=== PATIENT | male | born 1970 | race Caucasian/White ===

== ENCOUNTER 2016-09-22 09:13 | Emergency (ER) | payer BC ==
[2016-09-22] MEDS ORDERED: NITROGLYCERIN OINT 1 INCH/GM PACKET TOPICAL STA (09:40)
[2016-09-22] MEDS ORDERED: ASPIRIN 81 MG CHEW PO STA (09:40)
--- NOTE | 2016-09-22 09:44 | ED ---
General Adult HPI - General Chief complaint: Chest Pain Stated complaint: chest pain Time Seen by Provider: 09/22/16 09:20 Source: patient, RN notes reviewed Mode of arrival: wheelchair Limitations: no limitations - History of Present Illness Initial comments: This is a 45-year-old male who has a past medical history significant for 30 years of 3 pack a day smoking. Patient comes in today because since yesterday he's been getting significant chest pain across his chest and into his arms he states he also short of breath when it occurs. Patient states only last for 2- 3 seconds and goes away. patient states it's been intermittent since yesterday and continues to occur today. Patient states it never lasts more than a few seconds. But when it does come patient states is pretty significant pain Patient denies any diabetes hypertension and high cholesterol. Patient does not recognize anything that makes pain worse or better. Patient denies any recent fever or chills. Patient states she's always got a chronic cough probably secondary to smoke. Patient denies any headache patient denies numbness weakness. Patient denies any lightheadedness dizziness or near syncopal episode. Patient denies any abdominal pain patient denies nausea vomiting diarrhea. - Related Data Previous Rx's Medication Instructions Recorded Ibuprofen [Motrin] 600 mg PO Q6HR PRN #20 tab 09/22/16 Allergies Allergy/AdvReac Type Severity Reaction Status Date / Time No Known Allergies Allergy Verified 09/22/16 10:39 Review of Systems ROS Statement: Those systems with pertinent positive or pertinent negative responses have been documented in the HPI. ROS Other: All systems not noted in ROS Statement are negative. Past Medical History Past Medical History: No Reported History History of Any Multi-Drug Resistant Organisms: None Reported Past Surgical History: Tonsillectomy Past Psychological History: No Psychological Hx Reported Smoking Status: Current every day smoker Past Alcohol Use History: Occasional Past Drug Use History: Marijuana General Exam - General Exam Comments Initial Comments: GENERAL: Patient is well-developed and well-nourished. Patient is nontoxic and well- hydrated and is in no distress. ENT: Neck is soft and supple. No significant lymphadenopathy is noted. Oropharynx is clear. Moist mucous membranes. Neck has full range of motion without eliciting any pain EYES: The sclera were anicteric and conjunctiva were pink and moist. Extraocular movements were intact and pupils were equal round and reactive to light. Eyelids were unremarkable. PULMONARY: Unlabored respirations. Good breath sounds bilaterally. No audible rales rhonchi or wheezing was noted. CARDIOVASCULAR: There is a regular rate and rhythm without any murmurs gallops or rubs. ABDOMEN: Soft and nontender with normal bowel sounds. No palpable organomegaly was noted. There is no palpable pulsatile mass. SKIN: Skin is clear with no lesions or rashes and otherwise unremarkable. NEUROLOGIC: Patient is alert and oriented x3. Cranial nerves II through XII are grossly intact. Motor and sensory are also intact. Normal speech, volume and content. Symmetrical smile. MUSCULOSKELETAL: Normal extremities with adequate strength and full range of motion. No lower extremity swelling or edema. No calf tenderness. LYMPHATICS: No significant lymphadenopathy is noted PSYCHIATRIC: Normal psychiatric evaluation. Limitations: no limitations Course Vital Signs 09/22/16 09:17 Temperature 98.0 F Pulse Rate 110 H Respiratory 20 Rate Blood Pressure 129/96 O2 Sat by Pulse 98 Oximetry Medical Decision Making - Medical Decision Making Patient's EKG shows a normal sinus rhythm at 80 bpm CA interval 224 QRS is 80 QT interval 360 QTC is 4:15 patient's EKG shows no ST segment elevation or depression or T-wave abdomen is noted. Patient had 2 episodes of chest pain lasting 3-4 seconds in the emergency department and then it quickly subsided. Chest x-ray showed no acute abnormality. I spoke with the patient at length about quitting smoking it lasted at least 5 minutes. I discussed the patient's results with him and his and told him I recommended him stay in the hospital and repeating his heart enzymes he stated he did not want to stay and wanted to follow-up with Dr. amaral. I will be discharging the patient with the understanding that he is to follow-up soon as he can and to return if there are any new or worsening symptoms. - Lab Data Result diagrams: 09/22/16 09:34 09/22/16 09:34 Lab Results 09/22/16 09/22/16 09/22/16 Range/Units 09:34 09:34 09:34 WBC 8.5 (3.8-10.6) k/uL RBC 4.74 (4.30-5.90) m/uL Hgb 15.3 (13.0-17.5) gm/dL Hct 45.6 (39.0-53.0) % MCV 96.2 (80.0-100.0) fL MCH 32.3 (25.0-35.0) pg MCHC 33.5 (31.0-37.0) g/dL RDW 12.5 (11.5-15.5) % Plt Count 246 (150-450) k/uL Neutrophils % 71 % Lymphocytes % 19 % Monocytes % 7 % Eosinophils % 1 % Basophils % 0 % Neutrophils # 6.0 (1.3-7.7) k/uL Lymphocytes # 1.6 (1.0-4.8) k/uL Monocytes # 0.6 (0-1.0) k/uL Eosinophils # 0.1 (0-0.7) k/uL Basophils # 0.0 (0-0.2) k/uL PT (9.0-12.0) sec INR (<1.1) APTT (22.0-30.0) sec D-Dimer (<0.60) mg/L FEU Sodium 140 (137-145) mmol/L Potassium 5.5 H (3.5-5.1) mmol/L Chloride 101 (98-107) mmol/L Carbon Dioxide 26 (22-30) mmol/L Anion Gap 13 mmol/L BUN 18 (9-20) mg/dL Creatinine 0.93 (0.66-1.25) mg/dL Est GFR (MDRD) Af Amer >60 (>60 ml/min/1.73 sqM) Est GFR (MDRD) Non-Af >60 (>60 ml/min/1.73 sqM) Glucose 107 H (74-99) mg/dL Calcium 10.0 (8.4-10.2) mg/dL Magnesium 2.0 (1.6-2.3) mg/dL Total Bilirubin 1.2 (0.2-1.3) mg/dL AST 33 (17-59) U/L ALT 43 (21-72) U/L Alkaline Phosphatase 73 (38-126) U/L Total Creatine Kinase 392 H (55-170) U/L CK-MB (CK-2) 2.9 H* (0.0-2.4) ng/mL CK-MB (CK-2) Rel Index 0.7 Troponin I <0.012 (0.000-0.034) ng/mL Total Protein 8.0 (6.3-8.2) g/dL Albumin 4.9 (3.5-5.0) g/dL 09/22/16 Range/Units 09:34 WBC (3.8-10.6) k/uL RBC (4.30-5.90) m/uL Hgb (13.0-17.5) gm/dL Hct (39.0-53.0) % MCV (80.0-100.0) fL MCH (25.0-35.0) pg MCHC (31.0-37.0) g/dL RDW (11.5-15.5) % Plt Count (150-450) k/uL Neutrophils % % Lymphocytes % % Monocytes % % Eosinophils % % Basophils % % Neutrophils # (1.3-7.7) k/uL Lymphocytes # (1.0-4.8) k/uL Monocytes # (0-1.0) k/uL Eosinophils # (0-0.7) k/uL Basophils # (0-0.2) k/uL PT 10.6 (9.0-12.0) sec INR 1.0 (<1.1) APTT 25.0 (22.0-30.0) sec D-Dimer <0.17 (<0.60) mg/L FEU Sodium (137-145) mmol/L Potassium (3.5-5.1) mmol/L Chloride (98-107) mmol/L Carbon Dioxide (22-30) mmol/L Anion Gap mmol/L BUN (9-20) mg/dL Creatinine (0.66-1.25) mg/dL Est GFR (MDRD) Af Amer (>60 ml/min/1.73 sqM) Est GFR (MDRD) Non-Af (>60 ml/min/1.73 sqM) Glucose (74-99) mg/dL Calcium (8.4-10.2) mg/dL Magnesium (1.6-2.3) mg/dL Total Bilirubin (0.2-1.3) mg/dL AST (17-59) U/L ALT (21-72) U/L Alkaline Phosphatase (38-126) U/L Total Creatine Kinase (55-170) U/L CK-MB (CK-2) (0.0-2.4) ng/mL CK-MB (CK-2) Rel Index Troponin I (0.000-0.034) ng/mL Total Protein (6.3-8.2) g/dL Albumin (3.5-5.0) g/dL Disposition Clinical Impression: Chest pain Disposition: HOME SELF-CARE Condition: Good Instructions: Chest Pain (ED) Prescriptions: Ibuprofen [Motrin] 600 mg PO Q6HR PRN #20 tab PRN Reason: For pain Referrals: Shashi Gannon MD [Primary Care Provider] - 1-2 days Time of Disposition: 11:50
[2016-09-22 09:59] LABS: Basophils % (A) 0 %; CH 32.5; CHCM 33.9; Eosinophils # (A) 0.1 k/uL (0-0.7); Eosinophils % (A) 1 %; HCT 45.6 % (39.0-53.0); HDW 1.97; HGB 15.3 gm/dL (13.0-17.5); Luc # (Auto) 0.12; Luc % (Auto) 1; Lymphocytes # (A) 1.6 k/uL (1.0-4.8); Lymphocytes % (A) 19 %; MCH 32.3 pg (25.0-35.0); MCHC 33.5 g/dL (31.0-37.0); MCV 96.2 fL (80.0-100.0); Monocytes # (A) 0.6 k/uL (0-1.0); Monocytes % (A) 7 %; Neutrophils % (A) 71 %; RBC 4.74 m/uL (4.30-5.90); RDW 12.5 % (11.5-15.5); WBC 8.5 k/uL (3.8-10.6); WBC (Perox) 8.53
[2016-09-22 10:08] LABS: ALT 43 U/L (21-72); AST 33 U/L (17-59); Alkaline Phosphatase 73 U/L (38-126); Anion Gap 13 mmol/L; Blood Urea Nitrogen 18 mg/dL (9-20); Carbon Dioxide 26 mmol/L (22-30); Chloride 101 mmol/L (98-107); Glucose 107 mg/dL (74-99); Non-African American GFR(MDRD) >60 (>60 ml/min/1.73 sqM); Potassium 5.5 mmol/L (3.5-5.1); Sodium 140 mmol/L (137-145); Total Bilirubin 1.2 mg/dL (0.2-1.3)
[2016-09-22 10:12] LABS: Prothrombin Time 10.6 sec (9.0-12.0)
--- NOTE | 2016-09-22 10:22 | XR ---
EXAMINATION TYPE: XR chest 2V DATE OF EXAM: 09/22/2016 10:02 AM COMPARISON: NONE HISTORY: Chest pain TECHNIQUE: Frontal and lateral views of the chest are obtained. FINDINGS: There is no focal air space opacity, pleural effusion, or pneumothorax seen. The cardiac silhouette size is within normal limits. The osseous structures are intact. IMPRESSION: No acute cardiopulmonary process.
[2016-09-22 10:28] LABS: Creatine Kinase 392 U/L (55-170)
[2016-09-22 10:42] LABS: Creatine Kinase MB 2.9 ng/mL (0.0-2.4); Troponin I <0.012 ng/mL (0.000-0.034)
[2016-09-22] MEDS ORDERED: KETOROLAC 60 MG/2 ML VIAL IVP STA (11:51)
[2016-09-22 12:00] VITALS: BP 119/75; PULSE 80; RESP 17; TEMP 98.8
== END 2016-09-22 12:03 | disposition home or self-care (01) ==
LOC: EC 09:13
DX: R07.9 Chest pain, unspecified (principal); F17.200 Nicotine dependence, unspecified, uncomplicated; R06.02 Shortness of breath; R05 Cough
CPT/HCPCS: 36415; 93005; 85379; 80053; 82550; 82553; 83735; 84484; 85025; 85610; 85730; 71020; 96374; 99285; J1885

== ENCOUNTER → 2020-06-01 | Outpatient (CLI) | payer OTHER ==
--- NOTE | 2020-06-01 14:24 | XR ---
EXAMINATION TYPE: XR ankle complete LT DATE OF EXAM: 06/01/2020 COMPARISON: NONE HISTORY: Pain TECHNIQUE: 3 views of the left ankle are submitted for evaluation. FINDINGS: There is no evidence for fracture or dislocation. Ankle mortise is intact. Soft tissues are within normal limits. IMPRESSION: 1. No evidence for acute fracture.
--- NOTE | 2020-06-01 14:24 | XR ---
EXAMINATION TYPE: XR foot complete LT DATE OF EXAM: 06/01/2020 CLINICAL HISTORY: pain TECHNIQUE: Frontal, lateral and oblique images of the left foot are obtained. COMPARISON: None. FINDINGS: There is no acute fracture/dislocation evident. The joint spaces appear within normal gonzáles its. The overlying soft tissue appears unremarkable. IMPRESSION: There is no acute fracture or dislocation. ICD 10 NO FRACTURE, INITIAL EVALUATION
== END | disposition home or self-care (01) ==
LOC: RADXRMAIN 13:54
PROVIDERS: ATTEND Emergency Medicine
DX: S93.402A Sprain of unspecified ligament of left ankle, initial encounter (principal); S93.602A Unspecified sprain of left foot, initial encounter

== ENCOUNTER 2024-08-26 08:03 | Inpatient (IN) | payer BC, OTHER ==
--- NOTE | 2024-08-26 08:11 | ED ---
Chest Pain HPI - General Chief Complaint: Chest Pain Stated Complaint: Chest pain Time Seen by Provider: 08/26/24 08:04 Source: patient, RN notes reviewed Mode of arrival: EMS Limitations: no limitations - History of Present Illness Initial Comments: This is a 53-year-old male who presents to the emergency department for chest pain. Patient was taking the trash out at work and suddenly started to develop cramping in the right side of his chest. He then became diaphoretic and had some shortness of breath. States that the episode lasted about 5 minutes and then resolved on its own. Pain is described as a cramping sensation. He had no radiation of pain. Denies any history of similar symptoms in the past. When EMS arrived his pain had resolved. They did give him 324 mg of aspirin. When EMS did a twelve-lead, they found the patient to be in A-fib with a heart rate ranging from 150 to 200 bpm. Patient denies any history of A-fib. Denies any medical problems and does not take any medication. MD Complaint: chest pain - Related Data Home Medications Medication Instructions Recorded Confirmed No Known Home Medications 08/26/24 08/26/24 Allergies Allergy/AdvReac Type Severity Reaction Status Date / Time No Known Allergies Allergy Verified 08/26/24 09:52 Review of Systems ROS Statement: Those systems with pertinent positive or pertinent negative responses have been documented in the HPI. ROS Other: All systems not noted in ROS Statement are negative. Past Medical History Past Medical History: No Reported History History of Any Multi-Drug Resistant Organisms: None Reported Past Surgical History: Tonsillectomy Past Psychological History: No Psychological Hx Reported Past Alcohol Use History: Occasional Past Drug Use History: Marijuana General Exam Limitations: no limitations General appearance: alert, in no apparent distress Head exam: Present: atraumatic, normocephalic, normal inspection Respiratory exam: Present: normal lung sounds bilaterally. Absent: respiratory distress, wheezes, rales, rhonchi, stridor Cardiovascular Exam: Present: tachycardia, irregular rhythm Neurological exam: Present: alert, oriented X3, CN II-XII intact Psychiatric exam: Present: normal affect, normal mood Skin exam: Present: warm, dry, intact, normal color. 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 Was pt. sent in by a medical professional or institution? @ -No Did you speak to anyone other than the patient for history? @ -No Did you review nursing and triage notes? @ -Yes, and I agree, it is accurate with regards to the patient's symptoms. Were old charts reviewed? @ -No Differential Diagnosis? @ -Differential Chest Pain: Stable Angina, Unstable Angina, STEMI, NSTEMI Aortic Dissection, Pneumothorax, Musculoskeletal, Esophageal Spasm GERD, Cholecystitis, Pancreatitis, Zoster, this is not meant to be an all-inclusive list. EKG interpreted by me (3pts min.)? @ -EKG interpreted by me demonstrating the following: A-fib with RVR. Ventric ular rate 168 bpm, QRS duration 81 ms, QTc 330 ms. X-rays interpreted by me (1pt min.)? @ -Chest x-ray obtained, my interpretation identifies no localized consolidations or infiltrates. CT interpreted by me (1pt min.)? @ -Not obtained U/S interpreted by me (1pt. min.)? @ -Not obtained What testing was considered but not performed? (CT, X-rays, U/S, labs)? Why? @ -None What meds were considered but not given? Why? @ -None Did you discuss the management of the patient with other professionals? @ -Yes, Dr. Swanson, who accepts the patient for admission Did you reconcile home meds? @ -Yes Was smoking cessation discussed for >3mins.? @ -I discussed smoking cessation for greater than 3 minutes. The risk of smoking were discussed with the patient including but not limited to risks of cancer, stroke, coronary artery disease and COPD. Also discussed with patient were multiple methods of quitting smoking. Lastly we discussed the financial cost of smoking. Was critical care preformed (if so, how long)? @ -No Were there social determinants of health that impacted care today? How? (Homelessness, low income, unemployed, alcoholism, drug addiction, transportation, low edu. Level, literacy, decrease access to med. care, correction, rehab)? @ -No Was there de-escalation of care discussed even if they declined? (Discuss DNR or withdrawal of care, Hospice)? @ -No What co-morbidities impacted this encounter? (DM, HTN, Smoking, COPD, CAD, Cancer, CVA, Hep., AIDS, mental health diagnosis, sleep apnea, morbid obesity)? @ -Smoking Was patient admitted / discharged? @ -Admitted. On arrival, patient was in A-fib with RVR with a heart rate ranging from the 150s to 215. Lab work demonstrates mild leukocytosis with a white blood cell count of 11.5. Lab work otherwise unremarkable. D-dimer negative. Troponin negative at 0.020. Chest x-ray reveals no acute process. He was started on a Cardizem and heparin drip for A-fib with RVR and admitted to medicine for further management. Consult placed for cardiology and serial troponins ordered. Case discussed with ED attending, Dr. Campa. Undiagnosed new problem with uncertain prognosis? @ -None Drug Therapy requiring intensive monitoring for toxicity (Heparin, Nitro, Insulin, Cardizem)? @ -Cardizem and heparin Were any procedures done? @ -None Diagnosis/symptom? @ -New onset A-fib, A-fib with RVR, chest pain Acute, or Chronic, or Acute on Chronic? @ -Acute Uncomplicated (without systemic symptoms) or Complicated (systemic symptoms)? @ -Complicated Side effects of treatment? @ -None Exacerbation, Progression, or Severe Exacerbation] @ -Not applicable Poses a threat to life or bodily function? @ -Yes, if due to ACS it can be life-threatening. Disposition Clinical Impression: New onset a-fib, Atrial fibrillation with rapid ventricular response, Chest pain Disposition: ADMITTED IP TO THIS HOSP
[2024-08-26 08:37] LABS: Basophils # (A) 0.1 k/uL (0-0.2); Basophils % (A) 1 %; Eosinophils # (A) 0.2 k/uL (0-0.7); Eosinophils % (A) 1 %; HCT 43.1 % (39.0-53.0); HGB 14.1 gm/dL (13.0-17.5); Lymphocytes # (A) 2.1 k/uL (1.0-4.8); Lymphocytes % (A) 18 %; MCH 32.8 pg (25.0-35.0); MCHC 32.9 g/dL (31.0-37.0); Monocytes # (A) 0.7 k/uL (0-1.0); Monocytes % (A) 6 %; Neutrophils # (A) 8.4 k/uL (1.3-7.7); Neutrophils % (A) 73 %; Platelet Count 283 k/uL (150-450); RBC 4.31 m/uL (4.30-5.90); RDW 13.5 % (11.5-15.5); WBC 11.5 k/uL (3.8-10.6)
[2024-08-26] MEDS: DILTIAZEM 125 MG in SODIUM CHLORIDE 0.9% 100 ML IV SCH (08:41)
[2024-08-26] MEDS: SODIUM CHLORIDE 0.9% 1,000 ML IV STA (08:41)
[2024-08-26] MEDS: DILTIAZEM DRIP BOLUS FROM BAG 1 MG SOLN IV ONE (08:42)
[2024-08-26 08:45] LABS: African American GFR (CKD) >90 (>60 ml/min/1.73 sqM); Anion Gap 8 mmol/L; Blood Urea Nitrogen 16 mg/dL (9-20); Carbon Dioxide 24 mmol/L (22-30); Chloride 108 mmol/L (98-107); Glucose 101 mg/dL (74-99); Sodium 140 mmol/L (137-145)
[2024-08-26 08:46] LABS: ALT 39 U/L (4-49); Albumin 4.2 g/dL (3.5-5.0); Calcium 8.7 mg/dL (8.4-10.2); Non-African American GFR(CKD) >90 (>60 ml/min/1.73 sqM); Total Bilirubin 0.4 mg/dL (0.2-1.3); Total Protein 6.7 g/dL (6.3-8.2)
--- NOTE | 2024-08-26 08:50 | XR ---
EXAMINATION TYPE: XR chest 2V DATE OF EXAM: 08/26/2024 8:45 AM COMPARISON: 09/22/2016 CLINICAL INDICATION: Male, 53 years old with history of Chest Pain, TECHNIQUE: XR chest 2V view(s) obtained. FINDINGS: The heart size is normal. The pulmonary vasculature is normal. No suspicious infiltrates or consolidations evident. No significant interval change. IMPRESSION: 1. No acute pulmonary process. [facility], , 08/26/2024 8:48 AM
[2024-08-26 08:51] LABS: Magnesium 1.6 mg/dL (1.6-2.3); Potassium 4.9 mmol/L (3.5-5.1)
[2024-08-26 08:52] LABS: AST 42 U/L (17-59); Alkaline Phosphatase 57 U/L (38-126)
[2024-08-26 09:04] LABS: INR 0.9 (<1.2); Partial Thromboplastin Time 20.6 sec (22.0-30.0); Prothrombin Time 10.2 sec (10.0-12.5)
[2024-08-26] MEDS ORDERED: HEPARIN SODIUM 1,000 UN/ML (10ML VL) IV PRN (09:18)
[2024-08-26] MEDS ORDERED: NALOXONE 0.4 MG/ML 1 ML VIAL IV PRN (09:44)
[2024-08-26] MEDS ORDERED: ACETAMINOPHEN TAB 325 MG TAB PO PRN (09:44)
[2024-08-26] MEDS ORDERED: MORPHINE SULFATE 4 MG/ML SYRINGE IV PRN (09:44)
[2024-08-26] MEDS ORDERED: HYDROcodone/APAP 5-325MG 1 EACH TAB PO PRN (09:44)
[2024-08-26] MEDS ORDERED: ONDANSETRON 4 MG/2 ML VIAL IVP PRN (09:44)
[2024-08-26] MEDS: HEPARIN SODIUM 1,000 UN/ML (10ML VL) IV ONE (10:15)
[2024-08-26] MEDS: HEPARIN SOD,PORK IN 0.45% NACL 25,000 UNIT in 0.45% NACL 1 250ML.BAG IV SCH (10:16)
--- NOTE | 2024-08-26 10:45 | P.HPIM ---
History of Present Illness H&P Date: 08/26/24 Chief Complaint: chest pressure 53 year old man with history of tobacco/marijuana abuse presented for evaluation of chest pressure. Pt reports that he was at work, taking out the trash, when he noticed some cramping in his chest mostly on the right side. He broke out into a sweat and felt a little lightheaded during this episode. He also reported some associated palpitations with the onset of the pain. Notably, patient reports significant caffeine intake of 4-5 cups of coffee. In the ER, he was noted to be afebrile, HR 181, BP 136/109, 100% on room air. CBC shows leukocytosis to 11.5. BMP unremarkable. Mg is 1.6. TSH is 2.4. Trop is 0.02. LFTs unremarkable. Coags unremarkable. CXR appears clear bilaterally, normal sized heart. EKG shows A Fib with RVR to 168. All Systems reviewed and pertinent positives and negatives noted in HPI, all other symptoms are negative Gen: In NAD, non-toxic HEENT: normocephalic, atraumatic, hearing acuity is intant, mucous membranes moist CVS: perfusing all extremities well, no pitting edema, Respiratory: symmetric chest expansion, no accessory muscle use, GI: soft, NTTP, ND, : no suprapubic tenderness, no CVA tenderness MSK/Derm: no rashes, cyanosis Neuro: CN II-XII intact, no motor weakness, Psych: cooperative, euthymic mood, judgment and insight is intact Labs and Images as above Assessment/plan: Paroxysmal Atrial Fibrillation with RVR -admit to 3S with telemetry -cardiology consult -heparin gtt -cardizem gtt -counseled on reducing coffee intake -metoprolol initiated -echo ordered -trend troponins Tobacco/marijuana abuse -cessation counseling provided -NRT on pt request Pt is full code Past Medical History Past Medical History: No Reported History History of Any Multi-Drug Resistant Organisms: None Reported Past Surgical History: Tonsillectomy Past Psychological History: No Psychological Hx Reported Past Alcohol Use History: Occasional Past Drug Use History: Marijuana Medications and Allergies Home Medications Medication Instructions Recorded Confirmed Type No Known Home Medications 08/26/24 08/26/24 History Allergies Allergy/AdvReac Type Severity Reaction Status Date / Time No Known Allergies Allergy Verified 08/26/24 09:52 Physical Exam Osteopathic Statement: *. No significant issues noted on an osteopathic structural exam other than those noted in the History and Physical/Consult. Vitals: Vital Signs Temp Pulse Pulse Resp BP Pulse Ox 08/26/24 10:09 142 H 15 145/117 100 08/26/24 08:47 156 H 16 145/107 100 08/26/24 08:25 163 H 15 130/90 100 08/26/24 08:16 168 H 08/26/24 08:06 98.6 F 181 H 16 136/109 100 Intake and Output 08/25/24 08/26/24 08/26/24 22:59 06:59 14:59 Other: Weight 68.039 kg Results CBC & Chem 7: 08/26/24 08:25 08/26/24 08:25 Labs: Abnormal Lab Results - Last 24 Hours (Table) 08/26/24 08/26/24 08/26/24 Range/Units 08:25 08:25 08:25 WBC 11.5 H (3.8-10.6) k/uL Neutrophils # 8.4 H (1.3-7.7) k/uL APTT 20.6 L (22.0-30.0) sec Chloride 108 H (98-107) mmol/L Glucose 101 H (74-99) mg/dL
--- NOTE | 2024-08-26 12:55 | P.CRDCN ---
History of Present Illness Consult date: 08/26/24 History of present illness: History of Present Illness: The patient is a 53-year-old male, does not follow with any physician, has a history of chronic tobacco use, 1 pack a day, marijuana use and drinks at least 6 beers a day who presented for what he described as a right-sided cramp occurring today and lasting for few minutes. He came into the emergency room and was noted to be in atrial fibrillation and rapid ventricular response. According to him he had minimal palpitations today but has no prior history of palpitations, dizziness or syncope. He has mild dyspnea on exertion but no prior history of chest discomfort. He denies any PND, orthopnea or peripheral edema. His [id number] score is 0. Medications: None Review of Systems: Respiratory: Dyspnea on exertion with chronic tobacco use GI: No history of GI or bleeding : No hematuria or dysuria. Nervous System: No stroke or seizure. Physical Examination: 53-year-old male, alert oriented no apparent distress, appears older than stated age,Blood pressure 136/109, Heart rate 140 Head: Normocephalic. Eyes: Sclerae nonicteric. Neck: Good carotid upstroke, no bruit, no jugular venous distention. Lungs: Clear to auscultation. Heart: Irregular rate and rhythm, S1-S2, no S3, no rub. No murmur. Abdomen: Soft nontender, positive bowel sounds no organomegaly. Extremities: No edema, intact distal pulses. Labs: Potassium 4.9, hemoglobin 14.1, troponin less than 0.012, BUN 16, creatinine 0.92. Chest x-ray with no acute infiltrate EKG: Atrial fibrillation with rapid ventricular response and nonspecific ST-T wave changes Impression: 1. Atrial fibrillation, unknown duration with rapid ventricular response 2. Right sided chest cramping, no evidence to suggest cardiac etiology 3. Chronic tobacco use 4. Daily alcohol intake 5. Daily marijuana use Plan: 1. Increase the dose of beta-marii 2. Change to oral anticoagulation 3. Obtain an echocardiogram with Doppler 4. I discussed with the patient and his family the importance of smoking and alcohol cessation 5. If he remains in atrial fibrillation after controlling the ventricular rate the patient may benefit from cardioversion that can be done as an outpatient and if he maintains sinus mechanism then anticoagulation can be stopped in view of his risk. 6. Thank you for this consult we will follow with you. Past Medical History Past Medical History: No Reported History History of Any Multi-Drug Resistant Organisms: None Reported Past Surgical History: Tonsillectomy Past Psychological History: No Psychological Hx Reported Past Alcohol Use History: Occasional Past Drug Use History: Marijuana Medications and Allergies Home Medications Medication Instructions Recorded Confirmed Type No Known Home Medications 08/26/24 08/26/24 History Allergies Allergy/AdvReac Type Severity Reaction Status Date / Time No Known Allergies Allergy Verified 08/26/24 09:52 Physical Exam Vitals: Vital Signs Temp Pulse Pulse Resp BP Pulse Ox 08/26/24 10:09 142 H 15 145/117 100 08/26/24 08:47 156 H 16 145/107 100 08/26/24 08:25 163 H 15 130/90 100 08/26/24 08:16 168 H 08/26/24 08:06 98.6 F 181 H 16 136/109 100 Intake and Output 08/25/24 08/26/24 08/26/24 22:59 06:59 14:59 Other: Weight 68.039 kg Results 08/26/24 08:25 08/26/24 08:25 Cardiac Enzymes 08/26/24 08/26/24 08/26/24 Range/Units 08:25 08:25 11:53 AST 42 (17-59) U/L Troponin I 0.020 0.020 (0.000-0.034) ng/mL Coagulation 08/26/24 Range/Units 08:25 PT 10.2 (10.0-12.5) sec APTT 20.6 L (22.0-30.0) sec CBC 08/26/24 Range/Units 08:25 WBC 11.5 H (3.8-10.6) k/uL RBC 4.31 (4.30-5.90) m/uL Hgb 14.1 (13.0-17.5) gm/dL Hct 43.1 (39.0-53.0) % Plt Count 283 (150-450) k/uL Comprehensive Metabolic Panel 08/26/24 Range/Units 08:25 Sodium 140 (137-145) mmol/L Potassium 4.9 (3.5-5.1) mmol/L Chloride 108 H (98-107) mmol/L Carbon Dioxide 24 (22-30) mmol/L BUN 16 (9-20) mg/dL Creatinine 0.92 (0.66-1.25) mg/dL Glucose 101 H (74-99) mg/dL Calcium 8.7 (8.4-10.2) mg/dL AST 42 (17-59) U/L ALT 39 (4-49) U/L Alkaline Phosphatase 57 (38-126) U/L Total Protein 6.7 (6.3-8.2) g/dL Albumin 4.2 (3.5-5.0) g/dL Current Medications Generic Name Dose Route Start Last Admin Trade Name Freq PRN Reason Stop Dose Admin Acetaminophen 650 mg 08/26/24 09:44 Acetaminophen Tab 325 Mg Tab PO Q6HR PRN Mild Pain or Fever > 100.5 Hydrocodone Bitart/Acetaminophen 1 each 08/26/24 09:44 Hydrocodone/Apap 5-325mg 1 Each Tab PO Q4HR PRN Moderate Pain (Scale 4 to 6) Apixaban 5 mg 08/26/24 13:00 Apixaban 5 Mg Tab PO BID [facility] Protocol Diltiazem HCl 125 mg/ Sodium 125 mls @ 5 mls/hr 08/26/24 08:30 08/26/24 08:41 Chloride IV 5 mg/hr .Q24H JOSÉ MIGUEL 5 mls/hr Administration 5 MG/HR Metoprolol Tartrate 50 mg 08/26/24 21:00 Metoprolol Tartrate 25 Mg Tab PO BID [facility] Morphine Sulfate 4 mg 08/26/24 09:44 Morphine Sulfate 4 Mg/Ml Syringe IV Q4HR PRN Severe Pain (Scale 7 to 10) Naloxone HCl 0.2 mg 08/26/24 09:44 Naloxone 0.4 Mg/Ml 1 Ml Vial IV Q2M PRN Opioid Reversal Ondansetron HCl 4 mg 08/26/24 09:44 Ondansetron 4 Mg/2 Ml Vial IVP Q8HR PRN Nausea And Vomiting Intake and Output 08/25/24 08/26/24 08/26/24 22:59 06:59 14:59 Other: Weight 68.039 kg Patient Weight 08/27/24 06:59 Weight 68.039 kg 08/26/24 08:25 08/26/24 08:25
[2024-08-26] MEDS: APIXABAN 5 MG TAB PO SCH (13:02)
[2024-08-26] MEDS: MAGNESIUM OXIDE 400 MG TAB PO STA ×2 (13:02→13:11)
[2024-08-26] MEDS: MAGNESIUM SULFATE-D5W PMX 1 GM in DEXTROSE/WATER 1 100ML.BAG IVPB ONE ×2 (13:04→13:11)
[2024-08-26] MEDS: METOPROLOL TARTRATE 50 MG TAB PO SCH (13:51)
[2024-08-26] MEDS: METOPROLOL TARTRATE 25 MG TAB PO SCH (14:23)
[2024-08-27 06:30] LABS: Basophils % (A) 0 %; Eosinophils # (A) 0.4 k/uL (0-0.7); Eosinophils % (A) 4 %; HCT 43.5 % (39.0-53.0); HGB 14.2 gm/dL (13.0-17.5); Lymphocytes # (A) 2.3 k/uL (1.0-4.8); Lymphocytes % (A) 24 %; MCH 33.1 pg (25.0-35.0); MCHC 32.7 g/dL (31.0-37.0); MCV 101.2 fL (80.0-100.0); Mean Platelet Volume 7.9; Monocytes # (A) 0.6 k/uL (0-1.0); Monocytes % (A) 6 %; Neutrophils # (A) 6.1 k/uL (1.3-7.7); Neutrophils % (A) 64 %; Platelet Count 254 k/uL (150-450); RDW 12.9 % (11.5-15.5); WBC 9.5 k/uL (3.8-10.6)
[2024-08-27 06:34] LABS: Prothrombin Time 10.7 sec (10.0-12.5)
[2024-08-27 07:10] LABS: African American GFR (CKD) >90 (>60 ml/min/1.73 sqM); Anion Gap 9 mmol/L; Blood Urea Nitrogen 14 mg/dL (9-20); Calcium 9.4 mg/dL (8.4-10.2); Carbon Dioxide 24 mmol/L (22-30); Chloride 103 mmol/L (98-107); Glucose 100 mg/dL (74-99); Non-African American GFR(CKD) >90 (>60 ml/min/1.73 sqM); Potassium 4.2 mmol/L (3.5-5.1); Sodium 136 mmol/L (137-145)
--- NOTE | 2024-08-27 08:54 | P.PN ---
Subjective Progress Note Date: 08/27/24 PROGRESS NOTE The patient is a 53-year-old male, does not follow with any physician, has a history of chronic tobacco use, 1 pack a day, marijuana use and drinks at least 6 beers a day who presented for what he described as a right-sided cramp occurring today and lasting for few minutes. He came into the emergency room and was noted to be in atrial fibrillation and rapid ventricular response. According to him he had minimal palpitations today but has no prior history of palpitations, dizziness or syncope. He has mild dyspnea on exertion but no prior history of chest discomfort. He denies any PND, orthopnea or peripheral edema. His [id number] score is 0. August 27 The patient feels better today, he continues to be in atrial fibrillation with controlled ventricular response. He denies any chest discomfort, dizziness or palpitations. He denies any nausea or vomiting. His echocardiogram is pending Medications: Metoprolol 50 mg twice a day, Eliquis 5 mg twice a day PHYSICAL EXAMINATION: Blood pressure 108/80 heart rate 80 LUNGS: Clear to auscultation HEART: Irregular rate and rhythm, S1, S2. No S3. No systolic murmur ABDOMEN: Soft, nontender, no organomegaly EXTREMETIES: No edema LAB: Potassium 4.2, BUN 14, creatinine 0.72 IMPRESSION: 1. Atrial fibrillation of unknown duration, rate is controlled. [id number] score 0 2. Chronic tobacco use 3. Chronic alcohol intake 4. History of marijuana intake PLAN: 1. Obtain an echocardiogram with Doppler 2. If no significant abnormalities on the echo patient can be discharged home today 3. Continue anticoagulation and beta-marii 4. If he remains in atrial fibrillation as an outpatient consider cardioversion 5. Alcohol and tobacco cessation, discussed with the patient. Objective - Vital Signs Vital signs: Vital Signs Temp 98.9 F 08/26/24 16:50 Pulse 83 08/27/24 06:10 Resp 18 08/27/24 06:10 BP 108/81 08/27/24 06:10 Pulse Ox 98 08/27/24 06:10 FiO2 Intake & Output 08/26/24 08/27/24 08/27/24 18:59 06:59 18:59 Intake Total 110.083 Balance 110.083 Weight 68.039 kg Intake: Intake, IV Titration 110.083 Amount Diltiazem 125 mg In 110.083 Sodium Chloride 0.9% 100 ml @ 5 MG/HR 5 mls/hr IV .Q24H [facility] Rx#:[id number] - Labs CBC & Chem 7: 08/27/24 06:02 08/27/24 06:02 Labs: Abnormal Lab Results - Last 24 Hours (Table) 08/26/24 08/26/24 08/26/24 Range/Units 08:25 08:25 16:40 MCV (80.0-100.0) fL APTT 20.6 L 36.9 H (22.0-30.0) sec Sodium (137-145) mmol/L Chloride 108 H (98-107) mmol/L Glucose 101 H (74-99) mg/dL 08/27/24 08/27/24 Range/Units 06:02 06:02 MCV 101.2 H (80.0-100.0) fL APTT (22.0-30.0) sec Sodium 136 L (137-145) mmol/L Chloride (98-107) mmol/L Glucose 100 H (74-99) mg/dL
[2024-08-27 13:16] VITALS: RESP 18; TEMP 98.1
--- NOTE | 2024-08-27 14:49 | P.PN ---
Subjective Progress Note Date: 08/27/24 Hospital Course: A 53-year-old male with history of chronic tobacco use, marijuana use, alcohol use disorder, who does not follow with PCP, who presented to the ER and was found to be in A-fib with RVR, he was started on Cardizem and heparin, cardiology consulted, Ryley Vascor is 0. Patient was switched to Eliquis, started on beta-blockers, TTE ordered and pending Subjective: He was seen and examined at bedside, feels well today, denies chest discomfort, palpitations, shortness of breath Pertinent positives and negatives as discussed above, a complete review of systems was performed and all other systems are negative. Vitals Signs Reviewed. General: [nontoxic], [no distress], [appears at stated age] Derm: [warm], [dry] Head: [atraumatic], [normocephalic], [symmetric] Eyes: [EOMI], [no lid lag], [anicteric sclera] Mouth: [no lip lesion], [mucus membranes moist] Cardiovascular: [S1S2 ], [no murmur], irregular Lungs: [CTA bilateral], [no rhonchi, no rales] , [no accessory muscle use] Abdominal: [soft], [ nontender to palpation], [no guarding], [no appreciable organomegaly] Ext: [no gross muscle atrophy], [no edema], [no contractures] Neuro: [ CN II-XI grossly intact], [no focal neuro deficits] Psych: [Alert], [oriented], [appropriate affect] Data Reviewed Today: Pertinent Labs: Normal WBCs, erythrocytes, sodium 136, glucose 100, normal creatinine, TSH WNL Assessment and Plan: A-fib of unknown duration, rate controlled -Cardiology following, TTE pending -Started on Eliquis, continue -Continue Lopressor 50 twice daily, blood pressure stable -Case management consulted for help with Eliquis prescription, to find PCP Tobacco use disorder Alcohol use disorder -Recommend tobacco and alcohol cessation discussed with patient -Nicotine patch DVT ppx: Eliquis Anticipated discharge place:home Anticipated discharge time: 08/28/24 Objective - Vital Signs Vital signs: Vital Signs Temp 98.1 F 08/27/24 13:15 Pulse 93 08/27/24 13:15 Resp 18 08/27/24 13:15 BP 114/88 08/27/24 13:15 Pulse Ox 100 08/27/24 13:15 FiO2 Intake & Output 08/26/24 08/27/24 08/27/24 18:59 06:59 18:59 Intake Total 110.083 Balance 110.083 Weight 68.039 kg Intake: Intake, IV Titration 110.083 Amount Diltiazem 125 mg In 110.083 Sodium Chloride 0.9% 100 ml @ 5 MG/HR 5 mls/hr IV .Q24H [facility] Rx#:[id number] - Labs CBC & Chem 7: 08/27/24 06:02 08/27/24 06:02 Labs: Abnormal Lab Results - Last 24 Hours (Table) 08/26/24 08/27/24 08/27/24 Range/Units 16:40 06:02 06:02 MCV 101.2 H (80.0-100.0) fL APTT 36.9 H (22.0-30.0) sec Sodium 136 L (137-145) mmol/L Glucose 100 H (74-99) mg/dL
[2024-08-27] MEDS ORDERED: NICOTINE 21MG/24HR PATCH TRANSDERM SCH (15:00)
[2024-08-27 15:18] VITALS: BP 115/89; PULSE 89
--- NOTE | 2024-08-27 15:20 | P.DS ---
Providers Date of admission: 08/26/24 10:29 Attending physician: Alayna Swanson MD Consults: 08/26/24 09:44 Consult Physician Urgent Consulting Provider: Abran Colmenares Consult Reason/Comments: New onset A-fib, A-fib with RVR, chest pain Do you want consulting provider notified?: Yes Primary care physician: Stated None Hospital Course: Discharge Diagnosis: A-fib of unknown duration, rate controlled Tobacco use disorder Alcohol use disorder Left AMA Hospital Course: A 53-year-old male with history of chronic tobacco use, marijuana use, alcohol use disorder, who does not follow with PCP, who presented to the ER and was found to be in A-fib with RVR, he was started on Cardizem and heparin, cardiology consulted. Patient was switched to Eliquis, started on beta-bl ockers, TTE ordered and pending. I Was later informed that patient left AMA without waiting for TTE. Exam, refer to progress note dated 08/17/2024 A total of 40 minutes of time were spent preparing this complex discharge summary. Plan - Discharge Summary New Discharge Prescriptions: No Action No Known Home Medications Discharge Medication List No Known Home Medications 08/26/24 [History] Follow up Appointment(s)/Referral(s): Radha Clinton MD [STAFF PHYSICIAN] - 1 Week [facility] [NON-STAFF] - 1-2 days [facility] [NON-STAFF] - 1-2 days None,Stated [Primary Care Provider] - 1-2 days [facility] [NON-STAFF] - 1-2 days (Clinic for those with no insurance or who are underinsured. ) Discharge/Stand Alone Forms: Area PCPs
--- NOTE | 2024-08-27 17:53 | CA ---
Transthoracic Echo Report Name: Des Mathis Age: 53 Gender: M : 1970 Exam Date: 08/27/2024 11:40 Exam Location: [facility] Ht (in): 67 Wt (lb): 150 Ordering Physician: Radha Clinton MD ([id number]) Attending/Referring Phys: Spinner Cap Frame Meagan Martinez RDCS Procedure CPT: Indications: afib Cardiac Hx: Technical Quality: Good Contrast 1: Total Dose (mL): Contrast 2: Total Dose (mL): MEASUREMENTS (Male / Female) Normal Values 2D ECHO LV Diastolic Diameter PLAX 3.8 cm 4.2 - 5.9 / 3.9 - 5.3 cm LV Systolic Diameter PLAX 2.8 cm IVS Diastolic Thickness 0.5 cm 0.6 - 1.0 / 0.6 - 0.9 cm LVPW Diastolic Thickness 1.0 cm 0.6 - 1.0 / 0.6 - 0.9 cm LV Relative Wall Thickness 0.4 LVOT Diameter 2.1 cm Aortic Root Diameter 3.2 cm LV Diastolic Volume MOD BP 73.0 cm??? 67 - 155 / 56 - 104 cm??? LV Systolic Volume MOD BP 32.9 cm??? 22 - 58 / 19 - 49 cm??? LV Ejection Fraction MOD BP 55.0 % >= 55 % LV Cardiac Index MOD BP 1961.7 cm???/min???m??? LV Diastolic Volume MOD 4C 70.8 cm??? LV Systolic Volume MOD 4C 37.3 cm??? LV Ejection Fraction MOD 4C 47.3 % LV Cardiac Index MOD 4C 1636.3 cm???/min???m??? LV Diastolic Length 4C 8.2 cm LV Systolic Length 4C 7.1 cm LV Diastolic Volume MOD 2C 70.3 cm??? LV Systolic Volume MOD 2C 27.4 cm??? LV Ejection Fraction MOD 2C 61.0 % LV Cardiac Index MOD 2C 2097.2 cm???/min???m??? LV Diastolic Length 2C 7.7 cm LV Systolic Length 2C 6.6 cm LA Volume 50.0 cm??? 18 - 58 / 22 - 52 cm??? LA Volume Index 27.8 cm???/m??? 16 - 28 cm???/m??? Ascending Aorta Diameter 3.4 cm DOPPLER AV Peak Velocity 115.4 cm/s AV Peak Gradient 5.3 mmHg AV Mean Velocity 84.4 cm/s AV Mean Gradient 3.1 mmHg AV Velocity Time Integral 18.3 cm LVOT Peak Velocity 81.7 cm/s LVOT Peak Gradient 2.7 mmHg LVOT Velocity Time Integral 14.5 cm LVOT Stroke Volume 51.4 cm??? LVOT Stroke Volume Index 28.7 ml/m??? LVOT Cardiac Index 2516.4 cm???/min???m??? AV Area Cont Eq vti 2.8 cm??? AV Area Cont Eq pk 2.5 cm??? TR Peak Velocity 206.6 cm/s TR Peak Gradient 17.1 mmHg Right Atrial Pressure 5.0 mmHg Pulmonary Artery Systolic Pressu 22.1 mmHg Right Ventricular Systolic Press 22.1 mmHg PV Peak Velocity 48.2 cm/s PV Peak Gradient 0.9 mmHg FINDINGS Left Ventricle Left ventricular ejection fraction is estimated at 45-50 %. Mildly decreased left ventricular ejection fraction. Left ventricular cavity size normal. Mildly reduced global hypokinesis. Right Ventricle Mild right ventricular dilatation with mildly reduced function. Right ventricular systolic pressure within normal limits. Right Atrium Right atrial dilatation. Left Atrium Normal left atrial size. Mitral Valve Structurally normal mitral valve. No evidence for mitral valve prolapse. No mitral stenosis. Trace mitral regurgitation. Aortic Valve Trileaflet aortic valve. No aortic valve stenosis or regurgitation. Tricuspid Valve Structurally normal tricuspid valve. No tricuspid stenosis. Mild tricuspid regurgitation. Pulmonic Valve Pulmonic valve not well visualized. No pulmonic stenosis. No pulmonic regurgitation. Pericardium No pericardial effusion. Aorta Normal size aortic root and proximal ascending aorta. CONCLUSIONS Mildly impaired LV function with EF between 45 to 50% No pericardial effusion Previewed by: Dr. Abran Colmenares MD (Electronically Signed) Final Date: 27 August 2024 17:52
[2024-08-27] MEDS ORDERED: METOPROLOL TARTRATE 25 MG TAB PO SCH (21:00)
== END 2024-08-27 15:10 | disposition left against medical advice (07) | DRG 310 ==
LOC: EC 08:03 → 3NCARDOBS 10:29 → 1SOBS 11:48 → 3SCARD 16:16
PROVIDERS: ADMIT Internal Medicine; ATTEND Internal Medicine
DX: I48.0 Paroxysmal atrial fibrillation (principal); F17.200 Nicotine dependence, unspecified, uncomplicated; F10.10 Alcohol abuse, uncomplicated; Z71.6 Tobacco abuse counseling
CPT/HCPCS: 36415; 71046; 80048; 80053; 83735; 84443; 84484; 85025; 85379; 85610; 85730; 93005; 93306; 96365; 96366; 96368; 99285